=== PATIENT | female | born 1970 | race Two or more races ===

== ENCOUNTER 2024-06-20 06:55 | Day surgery (SDC) | payer MEDICAID, SELFPAY ==
--- NOTE | 2024-06-19 07:00 | EKG_ITS ---
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
[2024-06-19 08:03] VITALS: BMI 40.6
[2024-06-19 08:56] LABS: Basophils # (Auto) 0.1 Thou/mm3 (0.0-0.2); Basophils % (Auto) 1 % (0-2.5); Eosinophils # (Auto) 0.2 Thou/mm3 (0.0-0.5); Eosinophils % (Auto) 2 % (0-10); Hematocrit 41.4 % (36.0-46.0); Hemoglobin 14.4 g/dL (12.0-16.0); Immature Granulocytes % (Auto) 0 % (0-0); Immature Granulocytes Auto 0.03 Thou/mm3 (0.00-0.00); Lymphocytes # (Auto) 1.8 Thou/mm3 (1.0-4.8); Lymphocytes % (Auto) 24 % (10-50); Mean Corpuscular HGB Conc 34.8 g/dl (31.0-37.0); Mean Corpuscular Hemoglobin 30.4 pg (25.0-35.0); Mean Corpuscular Volume 88 fL (80-100); Monocytes # (Auto) 0.4 Thou/mm3 (0.0-0.8); Monocytes % (Auto) 5 % (0-12); Neutrophils # (Auto) 4.9 Thou/mm3 (1.8-7.7); Neutrophils % (Auto) 68 % (37-80); Nucleated Red Blood Cell % 0 /100 WBC (0); Platelet Count 268 Thou/mm3 (140-440); RDW Standard Deviation 39.4 fL (36.4-46.3); Red Blood Count 4.73 Miln/mm3 (4.00-5.20); White Blood Count 7.3 Thou/mm3 (3.6-11.0)
[2024-06-19 09:03] LABS: Partial Thromboplastin Time 26.1 Seconds (22.0-36.0); Prothrombin Time 10.7 Seconds (9.0-12.2)
[2024-06-19 09:14] LABS: Alanine Aminotransferase 21 U/L (10-49); Albumin, Serum 4.5 gm/dL (3.5-5.0); Albumin/Globulin Ratio 1.4 (1.2-2.2); Alkaline Phosphatase 114 U/L (46-116); Anion Gap 5 (7-16); Aspartate Amino Transferase 18 U/L (0-34); BUN/Creatinine Ratio 19 Ratio (12-20); Bilirubin,Total 1.2 mg/dL (0.3-1.2); Blood Urea Nitrogen 13 mg/dL (9-23); Calcium 9.8 mg/dL (8.3-10.6); Calcium (Corrected) 9.8 mg/dL (8.5-10.1); Carbon Dioxide 28.6 mMol/L (20.0-31.0); Chloride 104 mMol/L (98-107); Creatinine (Component) 0.7 mg/dL (0.6-1.3); Estimated Creatinine Clearance 96.6 mL/min (>60); Globulin 3.2 gm/dL (2.3-3.5); Glucose 115 mg/dL (74-106); Osmolality,Calculated 276 (275-295); Potassium 4.2 mMol/L (3.4-5.1); Sodium 138 mMol/L (136-145); Total Protein 7.7 gm/dL (5.7-8.2); eGFR > 60 See Note
--- NOTE | 2024-06-19 15:24 | SUR.PREOP ---
Pt notified to come in at 0700 tomorrow for surgery.
[2024-06-20] VITALS (8 sets, daily range): BP systolic 120–172; BP diastolic 70–94; PULSE 65–107; RESP 15–21; TEMP 36.2–36.6; O2SAT 95–100; BMI 40.1
--- NOTE | 2024-06-20 10:41 | SUR.PHASEI ---
pt received from OR in recovery bay 1. pt obtunded, breathing unlabored on oxymask 6l, oral airway in place. v/s stable. pt dressing to right lower extremity cdi. report received from Dr. Barney and Gopal GONZALEZ.
[2024-06-20] MEDS: ONDANSETRON INJ 2 MG/ML INJ 2 ML 4 MG IV (11:09)
[2024-06-20] MEDS: ACETAMINOPHEN IVPB 1,000 MG/100 ML VIAL 250 MG IV (11:09)
--- NOTE | 2024-06-20 12:00 | SUR.PHASEII ---
1113: Report from Ruperto RN 1200: pt awake, alert, able to follow commands, breathing unlabored, dressing to right lower extremity clean, dry, and intact, discharge instructions given using telephone [place] interpreters Marie ID#[id number] and Jessy ID# [id number] with daughter present, all questions answered, pt discharged via wheelchair with all belongings and copies of discharge paperwork.
== END 2024-06-20 12:00 | disposition home or self-care (01) ==
PROVIDERS: Anesthesiology; PCP Physician Assistant; Referring Provider Surgery Vascular Surgery; Visit Provider Surgery Vascular Surgery
PROC: (CPT 36475; principal; 2024-06-20 09:15)
DX: I83.811 Varicose veins of right lower extremity with pain (principal); Z01.810 Encounter for preprocedural cardiovascular examination
CPT/HCPCS: 36475; 37766; 36415; 80053; 85025; 85610; 85730; 93005; A4217; A4649; C1888; C1894; J0131; J0690; J1100; J1885; J2250; J2405; J2704; J3010; J7050